=== PATIENT | male | born 1960 | race Caucasian/White ===

== ENCOUNTER 2019-09-26 15:49 | Outpatient (CLI) | payer OTHER ==
--- NOTE | 2019-09-26 16:43 | Diagnostic Imaging Report ---
PATIENT MR#: [id number] PATIENT PATIENT NAME: RAUL DÍAZ DATE OF : 1960 REFERRING PHYSICIAN: Mariola Sauceda EXAM DATE: 09/26/2019 ACCESSION NUMBER: [id number] EXAM DESCRIPTION: KNEE 3 VIEWS CLINICAL HISTORY: PAIN IN RT KNEE, PT STATES RT KNEE PAIN WITH A KNOT ON THE BACK OF HIS KNEE X3 LYLY HS COMPARISON: No study for comparison is available at the time of interpretation. TECHNIQUE: DX right knee, 3 views Osseous structures: The osseous structures are normal with no evidence of fracture or dislocation. Th ere is no osseous lesion or periosteal reaction. Joint spaces: There is mild narrowing of the medial tibiofemoral and anterior patellofemoral articula r spaces. Small marginal osteophytes are noted at the patellar articular surface. Soft tissues: There is a mild-moderate suprapatellar effusion. 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 Posterior knee swelling may be due to the presence of popliteal cyst. This may be confirmed with MRI, if clinic ally indicated. Read by: Dr. Alejandro Keita Transcribed by: Alejandro Keita Transcribed Date: 09/26/2019 4:43:04 PM Electronically signed by: Dr. Alejandro Keita Date signed: 09/26/2019 4:43:04 PM
== END 2019-09-26 15:59 ==
LOC: RAD 15:49
PROVIDERS: ATTEND Nurse Practitioner Family
DX: L72.9 Follicular cyst of the skin and subcutaneous tissue, unspecified (principal)
CPT/HCPCS: 73562